=== PATIENT | female | born 1990 | race Caucasian/White ===

== ENCOUNTER 2016-12-21 21:36 | Emergency (ER) | payer BC ==
[~2016-12-21] VITALS: Ht 142.2 cm; Wt 43.2 kg
[~2016-12-21 21:36] MED LIST: ATARAX,VISTARIL25 MG PO; BREAST PUMP MC; FLEXERIL10 MG PO; FLEXERIL5 MG PO; IBUPROFEN800 MG PO; MOBIC15 MG PO; MOTRIN400 MG PO; MOTRIN600 MG PO; NAPROXEN500 MG PO; NOHOMEMEDS; NORCO 5/3251 TABLET PO; NORTREL1 EACH PO; PERCOCET 5/31 TABLET PO; PRENATAL TABLE1 EAC3 PO; REGLAN10 MG PO; TRAMADOL HCL50 MG PO; VENLAFAXINE H37.5 M3 PO; VENLAFAXINE HC150 M1 PO; ZOFRAN ODT4 MG PO; ZOFRAN4 MG PO
[2016-12-21] MEDS ORDERED: VENLAFAXINE HCL75 M3 PO (21:49)
[2016-12-22] MEDS ORDERED: NAPROXEN500 MG PO (00:57)
[2016-12-22 01:05] VITALS: BP 100/57
== END 2016-12-22 01:07 | disposition home or self-care (01) ==
LOC: EME 21:36
DX: S40.021A Contusion of right upper arm, initial encounter (principal); W22.8XXA Striking against or struck by other objects, initial encounter; L72.9 Follicular cyst of the skin and subcutaneous tissue, unspecified
CPT/HCPCS: 93971; 99281; 99284

== ENCOUNTER 2017-04-28 14:23 | Emergency (ER) | payer BC ==
[~2017-04-28 14:23] MED LIST changes: +VENLAFAXINE HCL75 M3 PO
[2017-04-28] MEDS ORDERED: BENTYL20 MG PO (19:23)
[2017-04-28] MEDS ORDERED: ZOFRAN ODT4 MG PO (19:23)
== END 2017-04-28 15:03 | disposition left against medical advice (07) ==
LOC: EME 14:23
DX: M54.5 Low back pain (principal); Z53.21 Procedure and treatment not carried out due to patient leaving prior to being seen by health care provider

== ENCOUNTER 2017-04-28 16:24 | Emergency (ER) | payer BC ==
[~2017-04-28] VITALS: Ht 142.2 cm; Wt 41.1 kg
[2017-04-28 17:12] LABS: HEMATOCRIT 32.9 % (36.0-46.0); MCH 31.6 PG (29.0-34.0); MCHC 34.3 G/DL (30.0-36.0); MCV 91.9 FL (83-99); MEAN PLAT.VOLUME 8.8 uM^3 (9.5-12.4); PLATELET COUNT 313 K/uL (156-360); RBC DIS.WIDTH-CV 11.8 % (11.8-14.6); RBC DIS.WIDTH-SD 39.9 % (39-53); RED BLOOD COUNT 3.58 M/uL (3.80-5.20); WHITE BLOOD COUNT 12.2 K/uL (4.1-10.2)
[2017-04-28 17:23] LABS: CHLORIDE 107 mEq/L (99-109); POTASSIUM 3.8 mEq/L (3.7-5.4); SODIUM 138 mEq/L (136-147)
[2017-04-28 17:25] LABS: GLUCOSE 92 mg/dL (70-99)
[2017-04-28 17:26] LABS: ANION GAP 9 MEQ/L (2-14)
[2017-04-28 17:27] LABS: TOTAL BILIRUBIN 0.5 mg/dL (0.0-1.0)
[2017-04-28 17:28] LABS: ALKALINE PHOSPHATASE 52 IU/L (3-129)
[2017-04-28 17:29] LABS: GFR ESTIMATE (CALCULATED) 51 mL/min/
[2017-04-28 17:30] LABS: UREA NITROGEN (BUN) 25 mg/dL (9-23)
[2017-04-28 17:37] LABS: QUANTITATIVE HCG < 4.0 MIU/ML
[2017-04-28] MEDS ORDERED: BENTYL20 MG PO (19:23)
[2017-04-28] MEDS ORDERED: ZOFRAN ODT4 MG PO (19:23)
[2017-04-28 19:34] LABS: ADD MIUA? YES; BILIRUBIN NEGATIVE; BLOOD SMALL; COLOR YELLOW ((YELLOW)); GLUCOSE (STRIP) NEGATIVE; KETONES NEGATIVE; LEUKOCYTES SMALL; NITRITE NEGATIVE; PROTEIN (STRIP) 30; SPECIFIC GRAVITY 1.011 (1.000-1.030); UROBILINOGEN 0.2 MG/DL (0.2-1.0)
[2017-04-28 19:47] LABS: ADD MEDTOX COMMENT Y; AMPHETAMINE PRESUMPTIVE POSITIVE (500 ng/mL); BARBITURATES NEGATIVE (200 ng/mL); BENZODIAZEPINES NEGATIVE (150 ng/mL); COCAINE NEGATIVE (150 ng/mL); INTERNAL CONTROLS VALID? YES; METHADONE NEGATIVE (200 ng/mL); METHAMPHETAMINE NEGATIVE (500 ng/mL); OPIATES (MORPHINE) NEGATIVE (100 ng/mL); OXYCODONE NEGATIVE (100 ng/mL); PHENCYCLIDINE NEGATIVE (25 ng/mL); PROPOXYPHENE NEGATIVE (300 ng/mL); THC CANNABINOIDS NEGATIVE (50 ng/mL); TRICYCLIC ANTIDEPRESSANTS NEGATIVE (300 ng/mL)
[2017-04-28 19:48] LABS: BACTERIA RARE /HPF; EPITHELIAL CELLS 3+ /HPF; HYALINE CASTS 0-5 /LPF; MUCUS 2+ /LPF; RED BLOOD CELLS 0-5 /HPF (0-5); UCUL ADDED? YES; WHITE BLOOD CELLS 15-20 /HPF (0-5)
[2017-04-28 19:58] VITALS: BP 112/74
== END 2017-04-28 19:59 | disposition home or self-care (01) ==
LOC: EME 16:24
PROVIDERS: Nurse Practitioner Family; Physician Assistant
DX: R10.84 Generalized abdominal pain (principal); N17.9 Acute kidney failure, unspecified; Z87.442 Personal history of urinary calculi; F17.200 Nicotine dependence, unspecified, uncomplicated; F32.9 Major depressive disorder, single episode, unspecified; Z88.5 Allergy status to narcotic agent
CPT/HCPCS: 74176; 80053; 81003; 84702; 84999; 85027; 87086; 99281; 99284; J1885; J2405; J3010; J7030